=== PATIENT | male | born 1955 | race Caucasian/White ===

== ENCOUNTER 2018-05-16 16:46 | Emergency (ER) | payer BC ==
[2018-05-16 17:11] VITALS: RESP 18; TEMP 98.2
--- NOTE | 2018-05-16 18:48 | ED ---
Male Urogenital HPI - General Chief complaint: Urogenital Stated complaint: unable to urinate Time Seen by Provider: 05/16/18 17:46 Source: patient, RN notes reviewed Mode of arrival: ambulatory Limitations: no limitations - History of Present Illness Initial comments: 63m with PMH of BPH and urethral strictures/scarring s/p multiple dilations with last being >2years ago who presents today for CC of urinary rentention x2 hours. Pt states that he currently follows urologist Dr. Reddy in [place] for urethral stricture and BPH. He see Dr. Reddy every 6 months for PSA and lab draw as well as examination. Pt has no known bladder or prostate cancer and has had previous prostate biopsy in the past year which returned negative for cancer. Pt has an appointment on Wednesday to see Dr. Reddy however he noticed this morning that he has a slightly weaker flow when urinating than baseline. Pt states that he has daily hesitancy and weak stream and this has been his baseline for "quite a few years". He was not concerned by the change in flow and denies any abdominal pain, hematuria, dysuria, penile discharge, testicular pain, recent weight loss, back/flank pain, fever, chills, nausea or vomiting. 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 Pt tried multiple times to urinate but was unable and then he presented to the emergency department requesting miranda placement. Pt does not take any medication currently for his BPH. In addition patient denies any recent shortness of breath, chest pain, back pain, abdominal pain, nausea or vomiting, numbness or tingling, dysuria or hematuria, constipation or diarrhea, headaches or visual changes, or any other complaints. - Related Data Previous Rx's Medication Instructions Recorded Tamsulosin [Flomax] 0.4 mg PO DAILY 7 Days #7 cap 05/16/18 Allergies Allergy/AdvReac Type Severity Reaction Status Date / Time amoxicillin Allergy Unknown Verified 05/16/18 17:11 Penicillins Allergy Unknown Verified 05/16/18 17:11 Review of Systems ROS Statement: Those systems with pertinent positive or pertinent negative responses have been documented in the HPI. ROS Other: All systems not noted in ROS Statement are negative. Constitutional: Denies: fever, chills Eyes: Denies: eye pain ENT: Denies: ear pain, throat pain Respiratory: Denies: cough, dyspnea Cardiovascular: Denies: chest pain, palpitations, dyspnea on exertion, orthopnea Endocrine: Denies: fatigue Gastrointestinal: Denies: abdominal pain, nausea, vomiting, diarrhea, constipation Genitourinary: Reports: as per HPI, urgency. Denies: dysuria, frequency, hematuria, discharge, testicular pain, testicular mass Musculoskeletal: Denies: back pain, joint swelling, arthralgia Skin: Denies: rash, lesions Neurological: Denies: headache, weakness, numbness, paresthesias, confusion, abnormal gait Past Medical History Past Medical History: GERD/Reflux, Hypertension, Prostate Disorder History of Any Multi-Drug Resistant Organisms: None Reported Past Surgical History: Hernia Repair Past Psychological History: No Psychological Hx Reported Smoking Status: Never smoker Past Alcohol Use History: None Reported Past Drug Use History: None Reported General Exam - General Exam Comments Initial Comments: General: The patient is awake and alert, in no distress, and does not appear acutely ill. Eye: Pupils are equal, round and reactive to light, extra-ocular movements are intact. No nystagmus. There is normal conjunctiva bilaterally. No signs of icterus. Ears, nose, mouth and throat: There are moist mucous membranes and no oral lesions. Neck: The neck is supple, there is no tenderness or JVD. Cardiovascular: There is a regular rate and rhythm. No murmur, rub or gallop is appreciated. Respiratory: Lungs are clear to auscultation, respirations are non-labored, breath sounds are equal. No wheezes, stridor, rales, or rhonchi. Musculoskeletal: Normal ROM, no tenderness. Strength 5/5. Sensation intact. Pulses equal bilaterally 2+. Neurological: A&O x 3. CN II-XII intact, There are no obvious motor or sensory deficits. Coordination appears grossly intact. Speech is normal. Skin: Skin is warm and dry and no rashes or lesions are noted. Psychiatric: Cooperative, appropriate mood & affect, normal judgment. : circumsized penis, no erythema or drainage from penis Limitations: no limitations Course Vital Signs 05/16/18 05/16/18 17:07 19:31 Temperature 98.2 F Pulse Rate 81 63 Respiratory 18 18 Rate Blood Pressure 166/91 140/76 O2 Sat by Pulse 98 97 Oximetry Medical Decision Making - Medical Decision Making 63 yo male with known prostate and urethral disease who presents today for cc of urinary retention concerning for urethral obstruction. Miranda catheter was placed and 500cc of urine were obtained. Urine was light yellow without evidence of sediment or gross hematuria. UA obtained WNL. Urine CX obtained- pending. given pt history of known disease and frequent monitoring with his urologist, I believe his urinary retention is most likely due to recurrent urethral scarring or BPH. Pt denies weight loss and had recent prostate BX negative for prostate CA, I have low suspicion for cancerous mass causes retention, however this cannot be excluded. Pt denies hematuria, dysuria, flank/ back pain I have low suspicion for obstructive stone. Case was discussed with Dr. Driscoll at this time we feel pt is stable for d/c with miranda catheter in place with f/u with his urologist in the next 1-2 days. pt agrees with plan and was requesting d/c. Pt was given rx for 0.4mg daily flomax for symptoms. 1000cc total of light yellow urine obtained. pt d/c in stable condition. - Lab Data Lab Results 05/16/18 Range/Units 19:03 Urine Color Light Yellow Urine Appearance Clear (Clear) Urine pH 6.0 (5.0-8.0) Ur Specific Jeffrey 1.010 (1.001-1.035) Urine Protein Negative (Negative) Urine Glucose (UA) Negative (Negative) Urine Ketones Negative (Negative) Urine Blood Small H (Negative) Urine Nitrite Negative (Negative) Urine Bilirubin Negative (Negative) Urine Urobilinogen <2.0 (<2.0) mg/dL Ur Leukocyte Esterase Negative (Negative) Urine RBC 10 H (0-5) /hpf Urine WBC 1 (0-5) /hpf Urine Mucus Rare H (None) /hpf Disposition Clinical Impression: Urinary retention Disposition: HOME SELF-CARE Condition: Good Additional Instructions: Please continue home medications as prescribed by urologist, please follow-up with urologist in next 24 hours. Please return to ER for any new or worsening symptoms. Please keep miranda catheter in place until further urology evaluation. Prescriptions: Tamsulosin [Flomax] 0.4 mg PO DAILY 7 Days #7 cap Is patient prescribed a controlled substance at d/c from ED?: No Referrals: Alfonso Kim MD [Primary Care Provider] - 1-2 days Michele Riley MD [STAFF PHYSICIAN] - 1-2 days Time of Disposition: 18:48
[2018-05-16 19:20] LABS: Appearance,Urine Clear (Clear); Bilirubin,Urine Negative (Negative); Blood,Urine Small (Negative); Color,Urine Light Yellow; Glucose,Urine (UA) Negative (Negative); Ketones,Urine Negative (Negative); Leukocyte Esterase,Urine Negative (Negative); Mucus,Urine Rare /hpf; Nitrite,Urine Negative (Negative); Protein,Urine Negative (Negative); RBC,Urine 10 /hpf (0-5); Urobilinogen,Urine <2.0 mg/dL (<2.0); WBC,Urine 1 /hpf (0-5)
[2018-05-16 19:33] VITALS: BP 140/76; PULSE 63
== END 2018-05-16 19:32 | disposition home or self-care (01) ==
LOC: EC 16:46
DX: R33.9 Retention of urine, unspecified (principal); Z88.0 Allergy status to penicillin
CPT/HCPCS: 51702; 81001; 87086; 99283